=== PATIENT | male | born 1995 | race Caucasian/White ===

== ENCOUNTER 2020-01-27 00:50 | Emergency (ER) | payer SELFPAY ==
[~2020-01-27 00:50] MED LIST: AMOX-422 PO; HYDR-3972 PO; NO HOME MEDS
== END 2020-01-27 01:05 | disposition left against medical advice (07) ==
LOC: ER 00:51
DX: F41.9 Anxiety disorder, unspecified (principal); Z53.21 Procedure and treatment not carried out due to patient leaving prior to being seen by health care provider

== ENCOUNTER 2024-12-29 22:54 | Emergency (ER) | payer SELFPAY ==
[~2024-12-29] VITALS: Ht 172.7 cm; Wt 90.9 kg
[2024-12-29 22:55] VITALS: BP 128/70; PULSE 88; RESP 18; TEMP 98.9; O2SAT 98
[2024-12-30] MEDS ORDERED: SULF1TAB45 PO (00:02)
--- NOTE | 2024-12-30 00:02 | Physician Documentation ---
History of Present Illness ~ Chief Complaint: Wound Stated Complaint: SWELLING ON CHIN Time Seen by MD: 23:46 Primary Medical Doctor: none HPI This is a 29-year-old male who presents with one day of an area of pain and swelling to his chin, patient reports that he noticed some purulent drainage from the area. Patient reports no fever. Patient reports no other acute symptoms or concerns. Tetanus within 5 years?: Yes Medication Reconciliation Allergies: Coded Allergies: No Known Allergies (Unverified , 12/30/24) Scheduled Amoxicillin/Potassium Clav (Augmentin 875-125 Tablet), 1 TAB PO Q12H Sulfamethoxazole/Trimethoprim (Septra Ds Tab), 1 TAB PO Q12H Scheduled PRN Hydrocodone Bit/Acetaminophen (Hydrocodon-Acetaminophn 10-325 tablet), 1 TAB PO Q4H PRN for Pain 6-10 Miscellaneous Medications Home Med List (No Home Medications), (Reported) Past Medical History Past Medical History: No Pertinent History Past Surgical History: orthopedic surgeries Drug Use: none Lives with: Family Lives In: Home Occupation: student Review of Systems ROS Pain and swelling to chin as stated above in the HPI, otherwise all systems are reviewed and negative. Physical Exam Vital Signs: Temperature: 98.9, Source: Oral, Heart Rate: 88, Respiratory Rate: 18, BP: 128/70, Pulse Oximetry: 98, Weight: 90.910 Physical Exam VITALS: Reviewed and as above. GENERAL: Alert, nontoxic appearing, no apparent distress. RESPIRATORY: No increased work of breathing, no respiratory distress, speaking in full clear sentences SKIN: Skin of chin approximately 1 cm x 1 cm area of erythema and swelling without significant induration or fluctuance, two small open areas with minimal serosanguineous drainage Progress Results/Orders Results/Orders Vital Signs 12/29/24 22:55 Temp 98.9 Pulse 88 Resp 18 B/P (MAP) 128/70 Pulse Ox 98 Medical Decision Making Findings This otherwise well-appearing 29-year-old male presented with pain and swelling with redness to his chin onset earlier today, physical exam was consistent with a carbuncle to the face without significant swelling, induration, or fluctuance, given patient reported some purulent discharge earlier be treated with a course of antibiotics though appears that carbuncle is spontaneous draining and incisio n and drainage is not indicated. There was no evidence of airway involvement or vermilion border involvement. It was reassuring that there is no evidence of rapidly progressing symptoms, crepitus, pain out of proportion, pain away from site or other signs/symptoms concerning for necrotizing fasciitis, myositis, or other deep tissue infection. I considered other high-risk diagnoses such as acute osteomyelitis, deep space abscess, septic joint, foreign body, or deep vein thrombosis or septic phlebitis. Physical exam is otherwise benign, patient is non-toxic and well-appearing, afebrile, hemodynamically stable, non-tachypneic, non-tachycardic, and room air SpO2 of 98% interpreted as normal and adequate. I discussed with patient regarding potential diagnosis and discharge plan bleeding home care instructions and follow up instructions. Patient given strict return precautions including rapidly progressing symptoms, pain out of proportion/severe pain, mucosal involvement, and/or fever > 100.4. 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 Differential Dx:Considerations: Include: Abscess, Cellulitis, Other (Legs angina, airway compromise, angioedema, allergic reaction, foreign body) Departure Disposition: 01 HOME / SELF CARE / HOMELESS Impression: Primary Impression: Carbuncle Condition: Improved Discharge Instructions: Skin Abscess Additional Instructions: Take the antibiotics as prescribed, use warm compresses twice a day on the area to promote drainage, otherwise keep the area clean and dry. Please follow up with your primary care provider in the next few days. Please return to the emergency department for any new or worsening concerning symptoms. Referrals: NO PRIMARY CARE PROVIDER (PCP) Prescriptions Sulfamethoxazole/Trimethoprim (Septra Ds Tab) 800 Mg/160 Mg Tablet 1 TAB PO Q12H for 7 Days, #14 TAB Prov: CB MULTANI 12/30/24 Education Educated: Patient Educated regarding: diagnosis, treatment, prognosis, need for follow up Signature Scribe Signature: No scribe Attestation: The note accurately reflects work and decisions made by me.DENIA Lacey 12/30/24 03:41 CB MULTANI December 30, 2024 00:02
[2024-12-30] MEDS ORDERED: RIFA300C65 PO (08:13)
== END 2024-12-30 00:12 | disposition home or self-care (01) ==
LOC: ER 22:55
DX: L02.93 Carbuncle, unspecified (principal); Z79.899 Other long term (current) drug therapy; Z98.890 Other specified postprocedural states
CPT/HCPCS: 99283

== ENCOUNTER 2024-12-30 03:13 | Emergency (ER) | payer OTHER ==
[~2024-12-30] VITALS: Ht 172.7 cm; Wt 90.9 kg
[~2024-12-30 03:13] MED LIST changes: +SULF1TAB45 PO
[2024-12-30 03:18] VITALS: BP 136/79; PULSE 94; TEMP 98.4; O2SAT 99
--- NOTE | 2024-12-30 03:30 | Physician Documentation ---
History of Present Illness ~ Chief Complaint: Abscess Stated Complaint: ABCESS Time Seen by MD: 03:24 Primary Medical Doctor: none HPI This is a 29-year-old gentleman who was seen 3 hours earlier, diagnosed with a facial cellulitis and abscess, discharged home with a prescription for antibiotics, returns recurrence the pain persists. Did not attempt to treat his pain. Would like a 1st dose of antibiotics here. No palliating or aggravating factors. No new concerns. No difficulty breathing. Tetanus Within 5 Years: Yes Medication Reconciliation Allergies: Coded Allergies: No Known Allergies (Unverified , 12/29/24) Scheduled Amoxicillin/Potassium Clav (Augmentin 875-125 Tablet), 1 TAB PO Q12H Sulfamethoxazole/Trimethoprim (Septra Ds Tab), 1 TAB PO Q12H Scheduled PRN Hydrocodone Bit/Acetaminophen (Hydrocodon-Acetaminophn 10-325 tablet), 1 TAB PO Q4H PRN for Pain 6-10 Miscellaneous Medications Home Med List (No Home Medications), (Reported) Past Medical History Past Medical History: No Pertinent History Past Surgical History: orthopedic surgeries Drug Use: none Lives with: Family Lives In: Home Occupation: student Review of Systems ROS 10 point review of systems was performed and unless noted above in HPI is negative for acute process/complaint. Physical Exam Vital Signs: Temperature: 98.4, Source: Oral, Heart Rate: 94, Respiratory Rate: 18, BP: 136/79, Pulse Oximetry: 99, Weight: 90.910 Physical Exam Physical examination: GENERAL: Awake, alert, oriented, GCS 15, no apparent distress, non-toxic appearing, answers questions, follows commands appropriately. HEENT: Atraumatic, normocephalic, pupils equal, extraocular muscles intact Active gross movements, sclerae anicteric, mucus membranes moist, no stridor. NECK: Midline, no JVD CARDIOVASCULAR: Good skin perfusion without evidence of pallor, mottling. PULMONARY: Nonlabored, symmetric chest rise, no audible wheezing, no accessory muscle use, no respiratory distress, speaking in full sentences. GASTROINTESTINAL: Not distended. NEUROLOGIC: Lucid with normal mental status. Normal facial symmetry. Moves all extremities symmetrically and with purpose. No truncal ataxia. Speech is fluid without evidence of dysarthria or aphasia, no focal deficits appreciated. EXTREMITIES: Acute deformities Skin: warm, dry PSYCHIATRIC: Normal affect, normal insight, normal concentration. Focused exam: [There is area of erythema, calor, and carbuncle on his face. Currently no obvious bleeding or drainage. No trismus. No floor of the mouth elevation. No hot potato voice. No drooling.] Progress Results/Orders Results/Orders Vital Signs 12/30/24 03:18 Temp 98.4 Pulse 94 Resp 18 B/P (MAP) 136/79 Pulse Ox 99 Medical Decision Making Findings Facility Status: ED Holds, E process The plan was discussed with the patient, who demonstrates clear understanding of the plan and is in agreement with the plan unless otherwise noted in the chart. All questions have been answered, all concerns were addressed unless otherwise documented. I was available throughout their ED stay for frequent reassessment and questions. Differential Diagnoses (considered and possible or likely): [Facial cellulitis, facial abscess, clinically not consistent with dental abscess, no evidence of airway compromise, clinically not consistent with Nino's angina] ??Differential Diagnoses (considered and unlikely, not requiring evaluation currently): [See above] MDM Data Please see [facility] for the following: Independent Historians and external Records Review. Historian: [Patient] Independent Historians: ?[Record review] Medication Management: [Reviewed medication list] Social History and determinants: [Reviewed] Please see the body of the note for the following: Any independent interpretations of ECG, imaging studies. All vitals signs/haemodynamics, ordered tests were independently reviewed and interpreted by myself. Nursing triage complaint and vitals reviewed, additional nursing notes were reviewed as available and I agree unless otherwise noted or documented in contra diction in the chart Vital Signs: Independently reviewed Labs: Independently interpreted Imaging: Independently interpreted Old Medical Records: Independently reviewed, see [facility] for relevant summary and information Pulse Oximetry: [100%] interpreted as [normal on room air] by me Additionally notably showing: [Hemodynamically stable] Tests considered but not ordered include: [Hematologic workup and imaging has been considered but does not appear to be necessary given clinical nature of diagnosis] Social Determinants of Health Impact: Patient was evaluated in [facility] [place] to healthcare due to below par ratio of patient to medical providers. [] Comorbid Conditions Impacting Present Evaluation and Care/Treatment: [Non] Management Discussions with other Healthcare Providers: [] Treatment and Disposition Medication Management (Given or considered): [1st dose of antibiotics, pain management]. See EMR for details Consideration for Hospitalization/Escalation/Deescalation of Care: Admission for observation has been considered, [however the patient is able to tolerate p.o., their symptoms are controlled, they are able to rely on oral medications, and their chief complaint/diagnosis can be managed on outpatient basis.] ?ED Course:?[No clinical deterioration] ?Shared decision making:?[Patient is hemodynamically stable for discharge home with follow with their primary care provider. [ He already has been prescribed antibiotics during prior visit.] Specific and cautious return precautions provided and discussed with full understanding. Any incidental findings were also discussed and follow up recommendations given. [] All questions answered. Patient/family were able to verbalize back return precautions. Patient/family agree to plan. Copies of imaging and laboratory studies were provided.] Code status:?FULL Please see the full Electronic Medical Record for full details of nursing documentation, medications list, other records of complete past medical history and conditions, vital signs, laboratory studies, and any radiologic study interpretations by radiologists. Portions of this note were completed using [employer] dictation software and as a result there may exist minor errors in spelling. I have reviewed elements of past family and social history and agree as included in note. Departure Disposition: 01 HOME / SELF CARE / HOMELESS Impression: Primary Impression: Facial cellulitis Condition: Improved Discharge Instructions: Cellulitis, Adult, [id number] Referrals: NO PRIMARY CARE PROVIDER (PCP) Education Educated: Patient Educated regarding: diagnosis, treatment, prognosis, need for follow up Signature Scribe Signature: No scribe Attestation: This note accurately reflects clinical decisions, work performed by myself, Darius Escalante, DARIUS PENALOZA DO December 30, 2024 03:30
[2024-12-30] MEDS: sulfamethoxazole/trimethoprim DS (800/160mg) tablet PO ONE (03:37)
[2024-12-30 03:38] VITALS: RESP 18
[2024-12-30] MEDS: ketorolac trometh 30MG/ML vial 30 MG/ML VIAL IM ONE (03:38)
[2024-12-30] MEDS ORDERED: RIFA300C65 PO (08:13)
== END 2024-12-30 03:45 | disposition home or self-care (01) ==
LOC: ER 03:14
DX: L03.211 Cellulitis of face (principal)
CPT/HCPCS: 96372; 99283; J1885

== ENCOUNTER 2024-12-30 06:57 | Emergency (ER) | payer BC, OTHER ==
[~2024-12-30] VITALS: Ht 172.7 cm; Wt 74.5 kg
[2024-12-30 07:00] VITALS: BP 129/84; PULSE 83; RESP 16; TEMP 97.4; O2SAT 97
--- NOTE | 2024-12-30 08:08 | Physician Documentation ---
History of Present Illness ~ General Chief Complaint: See Chief Complaint Stated Complaint: SWELLING ON FACE Time Seen by MD: 07:10 OK to notify your PCP?: Yes Primary Medical Doctor: NONE Source: patient, family, RN/, RN notes reviewed, old records Mode of Arrival: POV Exam Limitations: no limitations History of Present Illness Initial Comments This is the patient's 3rd visit in 24 hours given antibiotics return for pain meds unclear how much antibiotics he has taken a dose was given in the ER during the 2nd visit. Now returns because he woke up with pain and a swollen lip. Unfortunately he squeezed the infection earlier to get the pus out. Now it is worse. The bottom lip is starting to get swollen and it is painful as well. No drainage. There was no fevers or chills. Patient does vape. He has no history of diabetes. He appears well otherwise. Father at bedside Medication Reconciliation Allergies: Coded Allergies: No Known Allergies (Unverified , 12/30/24) Scheduled Amoxicillin/Potassium Clav (Augmentin 875-125 Tablet), 1 TAB PO Q12H Rifampin (Rifampin), 1 CAP PO Q12H Sulfamethoxazole/Trimethoprim (Septra Ds Tab), 1 TAB PO Q12H Scheduled PRN Hydrocodone Bit/Acetaminophen (Hydrocodon-Acetaminophn 10-325 tablet), 1 TAB PO Q4H PRN for Pain 6-10 Miscellaneous Medications Home Med List (No Home Medications), (Reported) Past Medical History Past Medical History: No Pertinent History Past Surgical History: orthopedic surgeries Smoking Status: Current every day smoker Drug Use: none Lives with: Family Lives In: Home Occupation: student Review of Systems All Other Systems at this time: Reviewed and Negative Physical Exam Physical Exam Vital Signs: RN Vital Signs have been reviewed: Yes, Temperature: 97.4, Heart Rate: 83, Respiratory Rate: 16, BP: 129/84, Pulse Oximetry: 97, Weight: 74.550 Oxygen Flow Rate: 0 Physical Exam General: The patient is well developed, well nourished, nontoxic appearing and is in no acute distress. Skin: [place], warm and dry with no rashes. HEENT: Head was normocephalic and atraumatic. Eyes - pupils equal, round, reactive to light and accommodation. Extraocular movements were intact. Conjunctivae were nonicteric. The mouth and oropharynx were clear with moist mucous membranes. There were no pharyngeal exudates or erythema. Lower lip there was an area of small erythema and slight scab approximately 1 x 1 cm firm. However soft tissue swelling has extended underneath the lip for approximately 3 cm. There is just a slight beginning of some soft tissue swelling but the area is firm no fluctuance. Neck: Supple and nontender. Chest: Clear to auscultation bilaterally without wheezes, rales or rhonchi. No accessory muscle use. Heart: Rate regular and rhythmic. S1, S2. No murmurs. Abdomen: Soft, nontender and nondistended. Positive bowel sounds. Extremities: No cyanosis, clubbing or edema. The patient moves all extremities. Progress Results/Orders Reviewed/noted all lab results: Yes Results/Orders Orders - JACQUE DUARTE MD Rifampin Capsule (Rifampin Capsule) (12/30/24 08:15) Mupirocin Cream (Bactroban Cream) (12/30/24 13:00) Sulfamethox/Trimetho. Ds Tab (Septra Ds (12/30/24 08:15) Vital Signs 12/30/24 07:00 Temp 97.4 Pulse 83 Resp 16 B/P (MAP) 129/84 Pulse Ox 97 O2 Flow Rate 0 Re-Evaluation Re-Evaluation : Re-Evaluation: Improved Progress Patient was seen and examined. Patient was given reassurance. Patient received some Bactroban ointment to the lip. Patient was given the morning dose of Bactrim and was started on rifampin. We discussed wound treatment nonsmoking warm compresses as well as the possibility of an I and D in 24-48 hours. At this time there was no obvious fluctuance and no obvious source of infection in terms of localized abscess. Appears to be cellulitis at this time Medical Decision Making Additional info obtained from: old records Departure Disposition: 04 INTERMEDIATE CARE FACILITY Impression: Primary Impression: Facial cellulitis Additional Impression: Tobacco smoker, 1 pack of cigarettes or less per day Condition: Stable Referrals: NO PRIMARY CARE PROVIDER (PCP) Prescriptions Rifampin (Rifampin) 300 Mg Capsule 1 CAP PO Q12H for 5 Days, #10 CAP 0 Refills Prov: JACQUE DUARTE MD 12/30/24 Education Educated: Patient Educated regarding: diagnosis, need for follow up, other Signature Scribe Signature: no scribe Attestation: The note accurately reflects work and decisions made by me.Jacque Duarte MD 12/30/24 08:10 JACQUE DUARTE MD December 30, 2024 08:08
[2024-12-30] MEDS ORDERED: RIFA300C65 PO (08:13)
[2024-12-30] MEDS: rifampin 300mg capsule PO SCH (08:33)
[2024-12-30] MEDS: sulfamethoxazole/trimethoprim DS (800/160mg) tablet PO ONE (08:33)
[2024-12-30] MEDS: mupirocin 2% ointment 22GM TP SCH (08:40)
== END 2024-12-30 08:44 | disposition home or self-care (01) ==
LOC: ER 06:57
DX: L03.211 Cellulitis of face (principal); F17.210 Nicotine dependence, cigarettes, uncomplicated
CPT/HCPCS: 99284